=== PATIENT | male | born 1980 | race Caucasian/White ===

== ENCOUNTER 2023-10-27 07:19 | Emergency (ER) | payer OTHER ==
[~2023-10-27] VITALS: Ht 190.5 cm; Wt 120.8 kg
[~2023-10-27 07:19] MED LIST: CELEBREX100 MG PO; DOXYCYCLINE HY100 M3 PO; OMEPRAZOLE20 MG PO
[2023-10-27] MEDS ORDERED: BELBUCA150 MCG PO (07:27)
[2023-10-27 08:24] VITALS: BP 147/90
== END 2023-10-27 08:25 | disposition home or self-care (01) ==
LOC: ED 07:19
DX: J02.9 Acute pharyngitis, unspecified (principal); K21.9 Gastro-esophageal reflux disease without esophagitis; Z79.1 Long term (current) use of non-steroidal anti-inflammatories (NSAID); Z79.899 Other long term (current) drug therapy
CPT/HCPCS: 87651; 99283

== ENCOUNTER 2024-01-17 15:53 | Emergency (ER) | payer OTHER ==
[~2024-01-17] VITALS: Ht 190.5 cm; Wt 113.4 kg
[~2024-01-17 15:53] MED LIST changes: +BELBUCA150 MCG PO
[2024-01-17] MEDS ORDERED: CEPHALEXIN MONOHYDRATE 500 MG HOME.PACK PO ONE (19:00)
[2024-01-17] MEDS ORDERED: DEXAMETHASONE SOD PHOS 10 MG/ML VIAL IM ONE (19:00)
[2024-01-17] MEDS ORDERED: CEPHALEXIN500 M1 PO (19:04)
[2024-01-17] MEDS ORDERED: EPIPEN 2-P0.3 MG/0.3 IM (19:04)
[2024-01-17] MEDS ORDERED: METHYLPREDNISOLO4 M1 PO (19:04)
[2024-01-17 19:32] VITALS: BP 145/95
== END 2024-01-17 19:32 | disposition home or self-care (01) ==
LOC: ED 15:53
DX: T63.441A Toxic effect of venom of bees, accidental (unintentional), initial encounter (principal); L03.115 Cellulitis of right lower limb; Z79.899 Other long term (current) drug therapy
CPT/HCPCS: 96372; 99282-25; A9270; J1100